=== PATIENT | female | born 1955 | race Caucasian/White ===

== ENCOUNTER → 2020-05-20 | Outpatient (CLI) | payer BC ==
[2016-09-16 12:01] VITALS: BP 91/61
[~2020-05-20] MED LIST: ACET500T33 PO; AMLO-311 PO; BREO ELLIPTA 11 EACH IH; FERR325T14 PO; LOSA100T14 PO; MECO10002 SL; MULT-658 PO; OMEP20CA16 PO; ONDA4TAB10 SL; ONDA4TAB7 PO; OXYC5CAP PO; RANI15SY PO; SUCR1TAB PO; VENTOLIN HFA18 GM INH
--- NOTE | 2020-05-20 14:28 | KCIC ---
Examination: HIP RIGHT 2V WITH PELVIS History: Reason: ACUTE PAIN OF RT HIP, NO KNOWN INJURY / Spl. Instructions: / History: Comparison/Correlation: None Findings: Frontal view the pelvis was obtained. Frontal view of right hip and frog-leg lateral view of the right hip are provided. Osteopenia is notable. Hip joint spaces are symmetric and unremarkable. Subtle subchondral lucencies of the right femoral head at its lateral aspect is seen. Suture material is noted along the right lower quadrant and upper pelvic level. Degenerative narrowing of the symphysis pubis is evident with subchondral sclerosis.. Impression: Subchondral degenerative cystic involvement of the right humeral head is noted with normal joint space. Osteopenia. Consider further imaging if occult fracture or other suspicious occult process is of concern. Electronically signed by: Cory Morales MD (05/20/2020 2:25 PM) [id number]
== END | disposition home or self-care (01) ==
LOC: KCIC 14:01
PROVIDERS: ATTEND Internal Medicine
DX: M16.11 Unilateral primary osteoarthritis, right hip (principal); M85.88 Other specified disorders of bone density and structure, other site
CPT/HCPCS: 73502

== ENCOUNTER → 2020-07-08 | Outpatient (CLI) | payer BC ==
[2016-09-16 12:01] VITALS: BP 91/61
[~2020-07-08] MED LIST changes: +AMLO10TA8 PO; +DICY20TA3 PO; +OXYC1TAB22 PO; +POLY17PO29 PO; +WARF-31 PO; +WARF1TAB69 PO
[2020-07-08 11:02] LABS: BASO % 0 % (0-3); EOS % 0 % (0-3); HEMATOCRIT 36.8 % (36.0-47.0); HEMOGLOBIN 12.3 g/dL (12.0-15.5); LYMPH # 0.9 x10^3/uL (1.0-4.8); LYMPH % 28 % (24-48); MEAN CORPUSCULAR HEMOGLOBIN 29 pg (25-35); MEAN CORPUSCULAR HGB CONC 33 g/dL (31-37); MEAN CORPUSCULAR VOLUME 87 fL (79-100); MONO # 0.4 x10^3/uL (0.0-1.1); MONO % 11 % (0-9); NEUT % 61 % (31-73); PLATELET COUNT 130 x10^3/uL (140-400); RED BLOOD COUNT 4.22 x10^6/uL (3.50-5.40); RED CELL DISTRIBUTION WIDTH 17.2 % (11.5-14.5); WHITE BLOOD COUNT 3.3 x10^3/uL (4.0-11.0)
[2020-07-08 11:05] LABS: ALBUMIN 3.5 g/dL (3.4-5.0); C-REACTIVE PROTEIN 4.4 mg/L (0-3.3); CALCIUM 8.3 mg/dL (8.5-10.1); CREATININE 0.9 mg/dL (0.6-1.0)
[2020-07-08 11:11] LABS: PROTHROMBIN TIME PATIENT 15.3 SEC (11.7-14.0)
--- NOTE | 2020-07-08 11:11 | EKG ---
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
--- NOTE | 2020-07-08 15:37 | RAD ---
EXAM: CHEST 2 VIEWS. HISTORY: Preoperative risk factors. COMPARISON: 04/07/2006. FINDINGS: Frontal and lateral views of the chest are obtained. A calcified granuloma in the left upper lobe measures 1.3 cm and is stable chronically. There are no confluent infiltrates. There is no pneumothorax or pleural effusion. The heart is not enlarged. Cholecystectomy clips are noted. There is a mild thoracic levoscoliosis. There are mild to moderate mid thoracic compression deformities and moderate thoracic degenerative disc disease. IMPRESSION: 1. No confluent infiltrates. Electronically signed by: Samira Salamanca MD (07/08/2020 3:34 PM) [id number]
[2020-07-09 01:09] LABS: HEMOGLOBIN A1C 5.1 % (4.8-5.6)
== END ==
LOC: SURGPAT 09:49
PROVIDERS: ATTEND Orthopaedic Surgery
DX: Z01.818 Encounter for other preprocedural examination (principal); M87.059 Idiopathic aseptic necrosis of unspecified femur; M51.34 Other intervertebral disc degeneration, thoracic region; J84.10 Pulmonary fibrosis, unspecified
CPT/HCPCS: 36415; 71046; 80048; 82040; 82306; 83036; 85025; 85610; 85730; 86140; 87641; 93005

== ENCOUNTER → 2020-07-25 | Outpatient (CLI) | payer BC ==
[2016-09-16 12:01] VITALS: BP 91/61
== END | disposition home or self-care (01) ==
LOC: LAB 12:49
PROVIDERS: ATTEND Orthopaedic Surgery
DX: Z20.828 Contact with and (suspected) exposure to other viral communicable diseases (principal)
CPT/HCPCS: U0003-CS

== ENCOUNTER 2020-07-30 06:08 | Inpatient (IN) | payer BC ==
[2020-07-30] VITALS (22 sets, daily range): BP systolic 74–96; BP diastolic 48–65
[~2020-07-30] VITALS: Ht 170.2 cm; Wt 76.3 kg
[~2020-07-30 06:08] MED LIST changes: +ACETAMINOPHEN 500 MG TABLET PO PRN; +CLINDAMYCIN 900MG PREMIX 50 ML IV PRN; +GABAPENTIN 300 MG CAPSULE. PO PRN; -OXYC1TAB22 PO; -POLY17PO29 PO; +TRANEXAMIC ACID 1,000 MG in IV NS 50ML -- 1ST BAG INJ ONE; -WARF-31 PO; -WARF1TAB69 PO
[2020-07-30] MEDS ORDERED: MORPHINE SULFATE 2 MG/ML VIAL. IV PRN (07:00)
[2020-07-30] MEDS ORDERED: ONDANSETRON PF 4 MG/2 ML VIAL. IV PRN (07:00)
[2020-07-30] MEDS ORDERED: fentaNYL PF VIAL 100 MCG/2 ML VIAL IV PRN (07:00)
[2020-07-30] MEDS ORDERED: LIDOCAINE 1% PF 2 ML VIAL. ID PRN (07:00)
[2020-07-30] MEDS ORDERED: HYDROmorphone 2 MG/ML VIAL IV PRN (07:00)
[2020-07-30] MEDS ORDERED: ROCURONIUM 50 MG/5 ML VIAL. ONE ×2 (07:37→11:08)
[2020-07-30] MEDS ORDERED: SEVOFLURANE > 120 MINUTES. IH ONE (07:37)
[2020-07-30] MEDS ORDERED: fentaNYL PF VIAL 100 MCG/2 ML VIAL ONE ×3 (07:37→12:58)
[2020-07-30] MEDS ORDERED: GLYCOPYRROLATE 1 MG/5 ML VIAL. ONE (07:38)
[2020-07-30] MEDS ORDERED: MIDAZOLAM HCL/PF 2 MG/2 ML VIAL. ONE (07:38)
[2020-07-30] MEDS ORDERED: NEOSTIGMINE METHYLSULFATE 5 MG/5 ML SYRINGE. ONE (07:38)
[2020-07-30] MEDS ORDERED: PROPOFOL 10 MG/ML (20ML) VIAL. IV ONE (07:39)
[2020-07-30] MEDS ORDERED: MELOXICAM 7.5 MG TABLET PO ONE ×2 (07:39→09:00)
[2020-07-30] MEDS ORDERED: DEXAMETHASONE SOD PHOS 4 MG/ML VIAL ONE (07:39)
[2020-07-30] MEDS ORDERED: ONDANSETRON PF 4 MG/2 ML VIAL. ONE (07:39)
[2020-07-30] MEDS ORDERED: LIDOCAINE 2% PF 5 ML VIAL. ONE (07:39)
[2020-07-30] MEDS: IV RINGERS,LACTATED 1000ML 1,000 ML IV SCH ×2 (07:54→12:32)
--- NOTE | 2020-07-30 07:55 | HP ---
ADMIT DATE: 07/30/2020 CHIEF COMPLAINT: Right hip pain. HISTORY OF PRESENT ILLNESS: The patient has ongoing right hip pain that is much more severe after a recent exacerbation episode. She has had avascular necrosis and has severe pain with weightbearing and range of motion waking her up if she rolls over at night as of an early May exacerbation episode could not put any weight on it at all. PAST MEDICAL HISTORY: Significant for Crohn's disease that required high doses of prednisone in the past, but nothing recent. Medical history of Crohn's disease, hypertension, asthma, anemia, iron deficiency. PAST SURGICAL HISTORY: Two bowel resections for Crohn's disease, partial hysterectomy, hernia repair, hemorrhoidectomy, laparoscopic cholecystectomy, liver biopsy, Achilles tendon repair, tonsillectomy, appendectomy, gallbladder surgery. FAMILY HISTORY: Dementia in her mom and COPD in her dad, both . SOCIAL HISTORY: Denies smoking or drug use. Occasional alcohol consumption socially. MEDICATIONS: List is reviewed. ALLERGIES: INCLUDE KEFLEX, TORADOL, CONTRAST DYE AND BACTRIM. REVIEW OF SYSTEMS: Denies any chest pain, shortness of breath, recent febrile illness, continued ongoing right hip pain. Denies any focal weakness, numbness, tingling. PHYSICAL EXAMINATION: VITAL SIGNS: Per admission sheet. HEENT: Atraumatic, normocephalic. HEART: Regular rate and rhythm. LUNGS: Clear to auscultation bilaterally. ABDOMEN: Benign. EXTREMITIES: Examination of the right hip reveals significant pain on her already limited extremes of range of motion. She has normal examination of the left hip. No tenderness over the trochanteric bursa on either side. Negative straight leg raise bilaterally. Normal alignment, stability, bilateral knees and ankles. IMPRESSION: Avascular necrosis of right hip and right hip pain. TREATMENT PLAN: We had previously talked through risks, benefits, postoperative course of total hip arthroplasty. She wants the anterior approach. We talked about the possibility of a leg length inequality, continued pain, premature wear or loosening, instability, nerve or blood vessel damage, medical or other anesthetic complications among others. All her questions were answered. She wishes to proceed with surgery today for again a right hip arthroplasty anterior approach. COCO GRIFFIN MD DR: BRYANT/cheryl JOB#: [id number] / [id number]
[2020-07-30] MEDS ORDERED: TRANEXAMIC ACID 1,000 MG in IV NS 50ML -- 2ND BAG INJ ONE (08:00)
[2020-07-30 08:05] LABS: PROTHROMBIN TIME PATIENT 15.3 SEC (11.7-14.0)
[2020-07-30] MEDS ORDERED: WARF-31 PO (08:12)
[2020-07-30] MEDS ORDERED: PHENYLEPHRINE in 0.9% NACL PF 1 MG/10 ML SYRINGE. IV ONE ×5 (08:20→12:02)
[2020-07-30] MEDS ORDERED: ePHEDrine PF IN SALINE 50 MG/10 ML SYRINGE. IV ONE ×3 (08:27→10:47)
[2020-07-30] MEDS ORDERED: MELOXICAM 7.5 MG TABLET PO SCH (09:00)
[2020-07-30] MEDS ORDERED: ALBUMIN HUMAN 5% 500 ML IV ONE (10:34)
[2020-07-30] MEDS ORDERED: VANCOMYCIN 1 GM VIAL. ONE (11:34)
[2020-07-30] MEDS ORDERED: PHENYLEPHRINE 10 MG/ML VIAL. ONE (12:03)
[2020-07-30] MEDS ORDERED: DEXTROSE 50% 25 GM / 50ML DISP.SYRIN. IV PRN (12:30)
[2020-07-30] MEDS ORDERED: oxyCODONE IR 5 MG TABLET PO PRN (12:30)
[2020-07-30] MEDS ORDERED: diphenhydrAMINE 50 MG/ML VIAL IVP PRN (12:30)
[2020-07-30] MEDS ORDERED: 0.9 % SODIUM CHLORIDE 10 ML DISP.SYRIN. IV PRN (12:30)
[2020-07-30] MEDS ORDERED: fentaNYL PF VIAL 100 MCG/2 ML VIAL IVP PRN (12:30)
[2020-07-30] MEDS ORDERED: ZOLPIDEM 5 MG TABLET. PO PRN (12:30)
--- NOTE | 2020-07-30 12:55 | RAD ---
INDICATION: Reason: post op / Spl. Instructions: / History: COMPARISON: June 10, 2020 IMPRESSION: Pelvis: 2 views obtained. Right hip arthroplasty changes without periprosthetic fracture or dislocation. There is a drain within the adjacent soft tissues as well as edema and air. Electronically signed by: Law Otoole MD (07/30/2020 12:52 PM) [id number]
[2020-07-30] MEDS ORDERED: PROCHLORPERAZINE 10 MG/2 ML VIAL. ONE (12:59)
[2020-07-30] MEDS: PROCHLORPERAZINE 10 MG/2 ML VIAL. IV PRN ×2 (13:03→13:26)
[2020-07-30] MEDS: fentaNYL PF VIAL 100 MCG/2 ML VIAL IV PRN ×2 (13:04→13:27)
--- NOTE | 2020-07-30 13:30 | NUR ---
received from recovery. she will arouse to her name. at bedside. she is hypotensive see frequent vs. bolus 500 cc ns started. she is pale and is rating her pain a "6". Hemovac jayy and iac intact.
--- NOTE | 2020-07-30 14:00 | NUR ---
she continues to hypotensive. Normal saline continue to infuse wide open. dozes at intervals.
[2020-07-30] MEDS ORDERED: IV NORMAL SALINE 500ML BAG 500 ML IV ONE (14:30)
[2020-07-30 14:58] LABS: HEMATOCRIT 22.5 % (36.0-47.0); HEMOGLOBIN 7.3 g/dL (12.0-15.5); RED BLOOD COUNT 2.53 x10^6/uL (3.50-5.40); RED CELL DISTRIBUTION WIDTH 16.1 % (11.5-14.5); WHITE BLOOD COUNT 5.8 x10^3/uL (4.0-11.0)
--- NOTE | 2020-07-30 15:00 | NUR ---
continues to be hypotensive. ivf of ns continues to infuse wide open. she arouses easily to her name.
[2020-07-30] MEDS ORDERED: WARFARIN 5 MG TABLET. PO ONE (16:00)
--- NOTE | 2020-07-30 16:14 | PDOC4 ---
Operative Note Operative Note Date of surgery: 07/30/2020 Preoperative diagnosis: Avascular necrosis right hip Postoperative diagnosis: Same with some isolated collapse of the femoral head Operative procedure: Right total hip arthroplasty Surgeon: Marcie Marshmallow Machine Operator: Charles Yadav nurse practitioner Anesthesia: General Estimated blood loss: 1100 cc Complications: None Specimens: Femoral head to pathology Drains: Intra-articular catheter and Hemovac drain right hip Operative indications: Please see my dictated clinic note for detailed operative indications and note that we covered the possibilities of infection, premature wear or loosening, instability, leg length discrepancy, nerve or blood vessel damage medical or other anesthetic complications among others and she wishes to proceed with surgical evaluation and treatment Operative text: Patient was identified procedure verified and after adequate amounts of general anesthesia were administered she was placed in the supine position on the [place] fracture table. Both legs were placed in traction boots and all bony prominences were well-padded. The right hip was then prepped and draped in standard sterile fashion. After timeout was performed patient procedure identified and verified an incision was made with a standard anterior approach along the tensor fascia artur. Dissection carried out down to the muscle fascia tensor fascia artur was brought laterally fascial compartment brought medially and circumflex vessels were coagulated with electrocautery. The anterior hip capsule was exposed and split in a T fashion. Femoral neck cut was then made in a napkin ring fashion and the femoral head was removed and found to have collapse of the portion of the weightbearing part of the head due to avascular necrosis. Labrum and contents of the fovea were excised and reaming carried out up to a size 51 which resulted in a good bleeding bony acetabulum and a size 52 porous plasma G7 Biomet acetabular shell 3-hole with 1 of the threaded caps removed. Proper anteversion and inclination was noted under fluoroscopic guidance and a single 25 mm screw was placed superiorly with excellent bite. A vitamin E E 36 mm neutral liner was impacted into place the femur was then exposed by releasing the posterior and lateral capsule with external rotators remaining intact and undergoing maximum external rotation hip extension and adduction to have a near complete broach system was used up to a size 7 and had excellent rotational and axial stability and was trial fit with a +7 36 mm trial head with a standard offset neck reproducing the offset and leg length as well as maintaining full range of motion excellent stability. Trial stem and components were removed irrigation carried out normal saline solution and and have a near complete collared size 7 standard offset cementless femoral stem was impacted into place with excellent stability and a Biolox ceramic femoral head +7, 36 mm diameter was impacted to engage the Salas taper and reduced and found to have similar offsets leg length and stability. Thorough irrigation carried out normal saline solution hip capsule was repaired with #2 max braid suture. Hemovac drain and pain catheter were placed pain catheter mixture injected throughout subperiosteal area and the joint capsule. Fascia was closed with #1 PDS strata fix suture subcutaneous closure with buried Vicryl suture skin closure with #3-0 Monocryl strata fix followed by a jayy dressing. Patient was returned to recovery room in stable condition having tolerated procedure well. Charles Yadav nurse practitioner was present for the procedure and assisted in the patient positioning prepping draping retraction closure and dressings COCO GRIFFIN MD Jul 30, 2020 16:14
--- NOTE | 2020-07-30 16:15 | NUR ---
Dr. Jack notified of continued hypotension. received order to infuse 2 units of packed cells. hemoglobin 7.3 dressing to right hip remains clean dry. blood pressure is in the 80's/ 50's.continues to arouse easily. voided 200 cc concentrated urine
[2020-07-30] MEDS: IV NORMAL SALINE 1000ML BAG 1,000 ML IV SCH (16:26)
--- NOTE | 2020-07-30 16:30 | NUR ---
more alert and blood pressure is more consistent. she was eating cake and tolerated fair. medicated with fentanyl 25 mcg and tolerated well.
[2020-07-30] MEDS: CLINDAMYCIN 900MG PREMIX 50 ML IV SCH ×2 (16:31→22:01)
[2020-07-30] MEDS: FERROUS SULFATE 325 MG TABLET. PO SCH (17:00)
--- NOTE | 2020-07-30 18:59 | NUR ---
rests quietly with eyes closed 1st unit of packed cells began
--- NOTE | 2020-07-30 21:15 | NUR ---
Transfusion completed. No s/s of reaction noted. Vitals stable. Patient denies any c/o pain at IV site, Saline flushed without difficulty, with good blood return. No redness noted. Patient voiding without difficulty. Call light in reach, will monitor.
[2020-07-31] VITALS (12 sets, daily range): BP systolic 86–109; BP diastolic 47–64
[2020-07-31] MEDS: MORPHINE SULFATE 2 MG/ML VIAL. IVP PRN ×8 (00:03→23:52)
--- NOTE | 2020-07-31 00:14 | NUR ---
Packed RBCs started post priming blood tubing with normal saline, then blood. Vital sign monitoring initiated and Patient denies any c/o. IV site flushed with blood return without difficulty.
--- NOTE | 2020-07-31 00:43 | NUR ---
Packed RBCS restarted post new IV site obtained as Patient c/o discomfort to IV site and slight redness noted at site after blood started. Blood running without c/o pain/discomfort at this time. Will monitor. Remaining at bedside for first 15 minutes to monitor infusion.
--- NOTE | 2020-07-31 02:36 | NUR ---
BLOOD PAUSED FOR 2 MINUTES AND FLUSHED PRIOR TO AND POST GIVING MORPHINE FOR PATIENT C/O PAIN.
--- NOTE | 2020-07-31 03:15 | NUR ---
Transfusion completed. Vitals stable. No s/s of reaction noted. IV site intact, no redness,pain noted. Patient denies SOA, voiding without difficulty.
[2020-07-31] MEDS: CLINDAMYCIN 900MG PREMIX 50 ML IV SCH (03:54)
[2020-07-31 05:03] LABS: PROTHROMBIN TIME PATIENT 24.7 SEC (11.7-14.0)
[2020-07-31] MEDS: oxyCODONE IR 5 MG TABLET PO PRN ×3 (05:25→21:53)
[2020-07-31] MEDS: GABAPENTIN 100 MG CAPSULE. PO SCH ×3 (05:27→21:59)
[2020-07-31] MEDS ORDERED: MAGNESIUM HYDROXIDE 2,400 MG/30 ML ORAL.SUSP. PO PRN (06:00)
[2020-07-31 06:53] LABS: HEMATOCRIT 24.8 % (36.0-47.0); HEMOGLOBIN 8.6 g/dL (12.0-15.5)
[2020-07-31] MEDS: MELOXICAM 7.5 MG TABLET PO SCH (07:58)
[2020-07-31] MEDS: MULTIVITAMIN with MINERAL TABLET. PO SCH (07:58)
[2020-07-31] MEDS ORDERED: ONDANSETRON ODT 4 MG TAB.RAPDIS. PO SCH (08:00)
--- NOTE | 2020-07-31 08:00 | NUR ---
awake and complaining of pain. states it is 10/10. assisted out of bed and ambulated to bathroom; voided 300 yellow urine. sitting in recliner. dressing to right anterior hip is clean dry. medicated with morphine. denies nausea; home medications renewed except for Norvasc. she has good pulses, sensation and pedal pulses bilaterally.
[2020-07-31] MEDS ORDERED: POLY17PO29 PO (08:03)
[2020-07-31] MEDS: ACETAMINOPHEN 500 MG TABLET PO SCH ×3 (08:43→21:53)
[2020-07-31] MEDS: FERROUS SULFATE 325 MG TABLET. PO SCH ×2 (08:44→14:14)
[2020-07-31] MEDS: PANTOPRAZOLE 40 MG TABLET.DR. PO SCH (08:44)
[2020-07-31] MEDS: POLYETHYLENE GLYCOL 3350 17 GM PACKET. PO SCH (08:44)
[2020-07-31] MEDS: ALBUTEROL SULFATE 2.5 MG/3 ML NEBU. NEB SCH ×4 (08:45→23:54)
[2020-07-31] MEDS ORDERED: NON FORMULARY ITEM (Fluticasone/Vilanterol (Breo Ellipta 100-25 Mcg Inh) 1 PUFF) IH SCH (09:00)
--- NOTE | 2020-07-31 10:00 | NUR ---
continues to complain of pain 8-08/01; again medicated with morphine. attending rehab class.
[2020-07-31] MEDS: DICYCLOMINE HCL 10 MG CAPSULE PO SCH ×3 (10:16→21:53)
[2020-07-31] MEDS: ONDANSETRON ODT 4 MG TAB.RAPDIS. PO SCH ×3 (10:16→18:17)
--- NOTE | 2020-07-31 11:04 | NUR ---
Pharmacy Warfarin Dosing Note S:Pharmacy consulted to assist with anticoagulation therapy started 07/30/20 with target INR: 1.6 - 2.5 O:TUNG BERMAN is a 64 year old F with right MARIELOS LABS: Last INR: 2.2 Last HGB: 8.6 Last HCT: 24.8 Last PLT: 92 Last dose of 5 mg given on 07/30/20 at 1653 A:INR of 2.2 is within desired range. Target range for this patient is: 1.6 - 2.5 P: Warfarin dose: Hold Today due to 0.9 increase in INR Bridge Therapy: None Next INR due 08/01/20 Pharmacy anticoagulation service will continue to follow. RUBIA FELIPE [facility]OPER [facility], 07/31/20 [id number]
[2020-07-31] MEDS ORDERED: ONDANSETRON ODT 4 MG TAB.RAPDIS. PO PRN (12:00)
[2020-07-31] MEDS: IV NORMAL SALINE 1000ML BAG 1,000 ML IV SCH (12:20)
--- NOTE | 2020-07-31 13:30 | NUR ---
states that her hip is feeling better but her right knee is worse. at bedside. attending 2nd rehab class. blood pressure remains hypotensive.
--- NOTE | 2020-07-31 15:00 | NUR ---
original surgical dressing removed. Hemovac was accidentally removed during pulling up pants. IAC removed and tolerated well. continues to complain of increase pain in her right knee. returns to bed attended both rehab sessions today ; tolerated fair.
--- NOTE | 2020-07-31 19:24 | PDOC ---
PROGRESS NOTES Date of Service DATE: 07/31/20 TIME: 19:19 Subjective Subjective Problems overnight: [place] a bit better this morning after transfusion. Got through physical therapy sessions but at the end of her afternoon session noted to have some limiting anterior knee pain Objective Vital Signs Vital Signs Date Time Temp Pulse Resp B/P (MAP) Pulse Ox O2 Delivery O2 Flow Rate FiO2 07/31/20 18:17 20 94 07/31/20 18:15 98.6 83 109/61 (77) Room Air 98.6 07/31/20 06:46 2.0 Physical Exam Leg lengths equal distal neurovascular status intact, jayy dressing intact hip with good motion and stability knee Tracking well but has some superior pole patella pain with intact extensor mechanism Labs Laboratory Tests Test 07/30/20 06:45 07/30/20 14:40 07/31/20 04:40 Prothrombin Time 15.3 SEC (11.7-14.0) 24.7 SEC (11.7-14.0) Prothromb Time International Ratio 1.3 (0.8-1.1) 2.2 (0.8-1.1) Activated Partial Thromboplast Time 36 SEC (24-38) White Blood Count 5.8 x10^3/uL (4.0-11.0) Red Blood Count 2.53 x10^6/uL (3.50-5.40) Hemoglobin 7.3 g/dL (12.0-15.5) 8.6 g/dL (12.0-15.5) Hematocrit 22.5 % (36.0-47.0) 24.8 % (36.0-47.0) Mean Corpuscular Volume 89 fL (79-100) Mean Corpuscular Hemoglobin 29 pg (25-35) Mean Corpuscular Hemoglobin Concent 33 g/dL (31-37) 35 g/dL (31-37) Red Cell Distribution Width 16.1 % (11.5-14.5) Platelet Count 92 x10^3/uL (140-400) Laboratory Tests Test 07/31/20 04:40 Hemoglobin 8.6 g/dL (12.0-15.5) Hematocrit 24.8 % (36.0-47.0) Mean Corpuscular Hemoglobin Concent 35 g/dL (31-37) Prothrombin Time 24.7 SEC (11.7-14.0) Prothromb Time International Ratio 2.2 (0.8-1.1) Imaging Postop x-rays show excellent fit of implant and equal leg lengths and offset Assessment Assessment POD#1 right total hip arthroplasty Plan Plan of Care Hemoglobin 8.6 after transfusion yesterday, recheck in a.m.; has history of anemia preop due to ulcerative colitis Observe right knee pain at end of physical therapy session today Justicifation of Admission Dx: Justifications for Admission: Justification of Admission Dx: Yes Comments: Required transfusion postop and monitoring, also some acute atraumatic right knee pain impacting her mobilization at the end of physical therapy session today COCO GRIFFIN MD Jul 31, 2020 19:24
[2020-07-31] MEDS: BUDESONIDE 0.5 MG/2 ML NEBU. NEB SCH (20:05)
[2020-08-01] MEDS: ACETAMINOPHEN 500 MG TABLET PO SCH ×4 (03:00→23:43)
--- NOTE | 2020-08-01 04:20 | NUR ---
IV tape reinforced, c/o some burning w/ saline flush. Offered to DC IV and convert to po pain meds; pt states " The dr and therapist said today will be the most painful day, it's the 3rd day." Patient did sleep about 4 hours in the recliner. States she woke up and didn't know where she was.
[2020-08-01] MEDS: MORPHINE SULFATE 2 MG/ML VIAL. IVP PRN ×5 (04:25→23:46)
[2020-08-01 06:00] VITALS: BP 117/73
[2020-08-01] MEDS: ALBUTEROL SULFATE 2.5 MG/3 ML NEBU. NEB SCH ×3 (06:00→19:44)
[2020-08-01 06:07] LABS: HEMATOCRIT 26.4 % (36.0-47.0); HEMOGLOBIN 9.3 g/dL (12.0-15.5)
[2020-08-01 06:14] LABS: PROTHROMBIN TIME PATIENT 24.8 SEC (11.7-14.0)
[2020-08-01] MEDS: PANTOPRAZOLE 40 MG TABLET.DR. PO SCH (06:25)
[2020-08-01] MEDS: GABAPENTIN 100 MG CAPSULE. PO SCH ×3 (06:25→23:43)
[2020-08-01] MEDS: ONDANSETRON ODT 4 MG TAB.RAPDIS. PO SCH ×4 (06:25→18:08)
--- NOTE | 2020-08-01 06:25 | NUR ---
Temp 101.3, Dr. Jack here and made aware. IS encouraged, demonstrates 1500cc. Hgb 9.3.
[2020-08-01] MEDS: oxyCODONE IR 5 MG TABLET PO PRN ×3 (06:26→14:26)
--- NOTE | 2020-08-01 06:39 | PDOC ---
PROGRESS NOTES Date of Service DATE: 08/01/20 TIME: 06:35 Subjective Subjective Problems overnight: Having increased proximal thigh pain overnight, requesting IV morphine as it works much better than current oral medications. Knee pain somewhat relieved from yesterday afternoon. Currently febrile to 101. Reports using incentive spirometry yesterday but really not overnight Objective Vital Signs Vital Signs Date Time Temp Pulse Resp B/P (MAP) Pulse Ox O2 Delivery O2 Flow Rate FiO2 08/01/20 06:26 20 Room Air 07/31/20 20:11 99 07/31/20 18:15 98.6 83 109/61 (77) 98.6 07/31/20 06:46 2.0 Physical Exam Thigh is soft but tender over incision compartments soft leg lengths equal distal neurovascular status intact hip flexors weak as expected Labs Laboratory Tests Test 07/30/20 06:45 07/30/20 14:40 07/31/20 04:40 08/01/20 04:28 Prothrombin Time 15.3 SEC (11.7-14.0) 24.7 SEC (11.7-14.0) 24.8 SEC (11.7-14.0) Prothromb Time International Ratio 1.3 (0.8-1.1) 2.2 (0.8-1.1) 2.3 (0.8-1.1) Activated Partial Thromboplast Time 36 SEC (24-38) White Blood Count 5.8 x10^3/uL (4.0-11.0) Red Blood Count 2.53 x10^6/uL (3.50-5.40) Hemoglobin 7.3 g/dL (12.0-15.5) 8.6 g/dL (12.0-15.5) 9.3 g/dL (12.0-15.5) Hematocrit 22.5 % (36.0-47.0) 24.8 % (36.0-47.0) 26.4 % (36.0-47.0) Mean Corpuscular Volume 89 fL (79-100) Mean Corpuscular Hemoglobin 29 pg (25-35) Mean Corpuscular Hemoglobin Concent 33 g/dL (31-37) 35 g/dL (31-37) 35 g/dL (31-37) Red Cell Distribution Width 16.1 % (11.5-14.5) Platelet Count 92 x10^3/uL (140-400) Laboratory Tests Test 08/01/20 04:28 Hemoglobin 9.3 g/dL (12.0-15.5) Hematocrit 26.4 % (36.0-47.0) Mean Corpuscular Hemoglobin Concent 35 g/dL (31-37) Prothrombin Time 24.8 SEC (11.7-14.0) Prothromb Time International Ratio 2.3 (0.8-1.1) Assessment Assessment POD#2 right total hip arthroplasty Plan Plan of Care Hemoglobin now 9.3 versus 8.6 yesterday, asymptomatic, fever currently encouraged incentive spirometry More thigh pain today, IV pain medicine for now and expect transition to oral as it is effective Continue PT weightbearing as tolerated avoiding extreme hips range of motion Placement when stable, likely tomorrow Justicifation of Admission Dx: Justifications for Admission: Justification of Admission Dx: Yes (Requiring IV pain medications, fever encourage incentive spirometry) COCO GRIFFIN MD Aug 01, 2020 06:39
[2020-08-01] MEDS: BUDESONIDE 0.5 MG/2 ML NEBU. NEB SCH ×2 (07:18→19:44)
[2020-08-01] MEDS: POLYETHYLENE GLYCOL 3350 17 GM PACKET. PO SCH (08:27)
[2020-08-01] MEDS: DICYCLOMINE HCL 10 MG CAPSULE PO SCH ×3 (08:28→23:44)
[2020-08-01] MEDS: MULTIVITAMIN with MINERAL TABLET. PO SCH (08:28)
[2020-08-01] MEDS: FERROUS SULFATE 325 MG TABLET. PO SCH ×2 (08:29→14:26)
[2020-08-01] MEDS: MELOXICAM 7.5 MG TABLET PO SCH (08:29)
[2020-08-01 08:35] VITALS: BP 110/71
--- NOTE | 2020-08-01 08:45 | NUR ---
102.2 -hr 100-20 110/71 sepsis team paged. instructed on Incentive spirometer and deep breathing. tylenol given. she was also getting a breathing treatment.
[2020-08-01 11:17] VITALS: BP 94/58
[2020-08-01] MEDS: IV NORMAL SALINE 1000ML BAG 1,000 ML IV SCH (12:20)
[2020-08-01 14:24] VITALS: BP 98/54
--- NOTE | 2020-08-01 15:27 | NUR ---
Pharmacy Warfarin Dosing Note S: Pharmacy consulted to assist with anticoagulation therapy started 07/30/20 O: TUNG BERMAN is a 64 year old F with MARIELOS LABS: Last INR: 2.3 Last HGB: 9.3 Last HCT: 26.4 Last PLT: 92 Last dose of HELD on 07/31/20 at 1600 Vitamin K given: N A:INR of 2.3 is within desired range. Target range for this patient is: 1.6 - 2.5 P: Warfarin dose: 1 mg Today at 1600 Bridge Therapy: None Next INR due 08/02/20 AM Pharmacy anticoagulation service will continue to follow. HERIBERTO BALDERRAMA RP, 08/01/20 [id number]
[2020-08-01] MEDS ORDERED: WARFARIN 1 MG TABLET. PO ONE (16:00)
[2020-08-01] MEDS ORDERED: MAGNESIUM HYDROXIDE 2,400 MG/30 ML ORAL.SUSP. PO PRN (17:30)
[2020-08-01 18:15] VITALS: BP 91/59
[2020-08-01 23:30] VITALS: BP 103/68
[2020-08-02] MEDS: ACETAMINOPHEN 500 MG TABLET PO SCH ×3 (03:00→12:56)
[2020-08-02] MEDS: oxyCODONE IR 5 MG TABLET PO PRN ×5 (03:08→16:03)
--- NOTE | 2020-08-02 03:13 | NUR ---
Ambulated to toilet, rating pain 5\10. Roxicodone 10mg given po. Assisted back to bed.
[2020-08-02] MEDS: GABAPENTIN 100 MG CAPSULE. PO SCH ×2 (05:36→16:02)
[2020-08-02] MEDS: PANTOPRAZOLE 40 MG TABLET.DR. PO SCH (05:36)
[2020-08-02] MEDS: ONDANSETRON ODT 4 MG TAB.RAPDIS. PO SCH ×3 (05:36→12:00)
[2020-08-02 05:42] LABS: HEMATOCRIT 23.5 % (36.0-47.0)
[2020-08-02 05:46] LABS: PROTHROMBIN TIME PATIENT 20.5 SEC (11.7-14.0)
[2020-08-02 06:18] VITALS: BP 93/67
--- NOTE | 2020-08-02 06:36 | NUR ---
Hemoglobin 8.0. BP 93/67. Patient sleeping in bed.
[2020-08-02] MEDS ORDERED: BISACODYL 10 MG SUPP.RECT. PR ONE (07:15)
[2020-08-02] MEDS: DICYCLOMINE HCL 10 MG CAPSULE PO SCH ×2 (07:23→12:56)
[2020-08-02] MEDS: MELOXICAM 7.5 MG TABLET PO SCH (07:23)
[2020-08-02] MEDS: FERROUS SULFATE 325 MG TABLET. PO SCH (07:23)
[2020-08-02] MEDS: MULTIVITAMIN with MINERAL TABLET. PO SCH (07:24)
[2020-08-02] MEDS: ALBUTEROL SULFATE 2.5 MG/3 ML NEBU. NEB SCH ×3 (07:26→15:25)
[2020-08-02] MEDS: BUDESONIDE 0.5 MG/2 ML NEBU. NEB SCH (07:27)
[2020-08-02] MEDS: POLYETHYLENE GLYCOL 3350 17 GM PACKET. PO SCH (10:45)
--- NOTE | 2020-08-02 11:08 | PATHOLOGY ---
[facility] Accession Number: [id number] . 01 Material submitted: . hip - RIGHT HIP BONE AND TISSUE. Modifiers: right . 01 Clinical history: . AVN RIGHT HIP . 02 Diagnosis: Bone "right hip", total arthroplasty: - Collapse of bony trabeculae with coagulative necrosis, consistent with avascular necrosis. - Negative for malignancy. (MLK:pit; 08/02/2020) P 08/02/2020 1043 Local . 02 Electronically signed: . Luh Vásquez MD, Pathologist NPI- [id number] . 01 Gross description: . The specimen is received in formalin, labeled "Ivis Gomes, right hip bone and tissue". Received is a fragmented femoral head and femoral neck measuring 7.5 x 5.4 x 4.8 cm in aggregate dimension. The articular surface is smooth in appearance and approximately one-fourth of the surface is absent exposing underlying light campos to light brown, friable bone. Sectioning reveals pink-campos to dark brown cut surfaces with multiple cystic structures identified ranging in size from 0.4 to 0.7 cm filled with yellow-campos mucoid material. The specimen is submitted representatively in cassettes A1 through A3, following decalcification. Gross photographs are taken. (CAA; 07/31/2020) QA/QA 07/31/2020 1135 Local . 02 Pathologist provided ICD-10: M87.852 . 02 CPT . 972057, 821337 Specimen Comment: A courtesy copy of this report has been sent to [phone], [phone] Specimen Comment: [id number] Specimen Comment: Report sent to / DR WEST Performed at: [address], [place], [place] [id number] MD Trevon Venegas MD Phone: [phone] Performed at: [address] [id number] MD Keyshawn Gruber MD Phone: [phone]
--- NOTE | 2020-08-02 12:09 | NUR ---
Pharmacy Warfarin Dosing Note S: Pharmacy consulted to assist with anticoagulation therapy started 07/30/20 O: TUNG BERMAN is a 64 year old F with MARIELOS LABS: Last INR: 1.8 Last PLT: 92 Last dose of 1 mg given on 08/01/20 at 1809 Ongoing Drug Interactions: MOBIC A:INR of 1.8 is within desired range. Target range for this patient is: 1.6 - 2.5 P: Warfarin dose: 1 mg Prior to Discharge Bridge Therapy: None Next INR due 08/05/20 per Home Health Pharmacy anticoagulation service will continue to follow until end of therapy 09/09/20. HERIBERTO BALDERRAMA RPH, 08/02/20 [id number]
[2020-08-02] MEDS: IV NORMAL SALINE 1000ML BAG 1,000 ML IV SCH (12:20)
[2020-08-02] MEDS ORDERED: CYANOCOBALAMIN (VITAMIN B-12) 1,000 MCG TABLET. PO SCH (13:00)
[2020-08-02] MEDS ORDERED: WARF1TAB69 PO (13:24)
[2020-08-02 14:32] VITALS: BP 89/66
[2020-08-02] MEDS ORDERED: OXYC1TAB22 PO (15:53)
--- NOTE | 2020-08-02 15:55 | SNU/HH DC ---
DISCHARGE WITH HOME HEALTH DISCHARGE INFORMATION: Condition on Discharge: Stable CODE STATUS: Code Status: Full HOME HEALTH: Face to Face: I certify this patient is under my care and that I, or a nurse practitioner or physician's graduate assistant working with me, had a face to face encounter that meets the physician face to face encounter requirements with this patient on [08/02/20]. 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 manager For Eval/Treatment: Yes Physical Therapy For: Evalulation/Treatment Pt Meets Homebound Status: Limited distance walking POST DISCHARGE ORDERS: Activity Instructions for Disc: Progressive ambulation Weight Bearing Status after Di: As tolerated Bathing Instructions: Shower-keep dressing dry DIET AFTER DISCHARGE: Regular Wound/Incision Care: Ice to area for comfort, Do not change dressing (Change dressing if saturated) CHECKS AFTER DISCHARGE: Checks after discharge: Check blood press - daily (Hold blood pressure medication if hypotensive or normotensive) CERTIFICATION STATEMENT: Certification Statement: Certification Statement: Based on the above finding, I certify that this patient is confined to the home and needs intermittent senior living care, physical therapy and/or speech therapy, or continues to need occupational therapy.~ This patient is under my care, and I have initiated the establishment of the plan of care.~ This patient will be followed by myself or a community physician who will periodically review the plan of care. Home Meds Active Scripts Ondansetron Hcl (ZOFRAN) 4 Mg Tablet, 1 TAB PO Q6HRS, #13 TAB Prov:ALAINA HANSEN MD 09/16/16 Reported Medications Warfarin Sodium (WARFARIN SODIUM) 1 Mg Tablet, 1 MG PO DAILY for blood thinner , #45 TAB 0 Refills 08/02/20 Polyethylene Glycol 3350 (MIRALAX) 17 Gm Powd.pack, 1 PACKET PO DAILY for constipation, #30 PACKET 0 Refills dissolve in water 07/31/20 Warfarin Sodium (WARFARIN SODIUM) 5 Mg Tablet, 5 MG PO X1 for PREOP, #30 TAB 07/30/20 Dicyclomine Hcl (DICYCLOMINE HCL) 20 Mg Tablet, 1 TAB PO TID for NA, #30 TAB 1 Refill 07/08/20 Amlodipine Besylate (AMLODIPINE BESYLATE) 10 Mg Tablet, 10 MG PO DAILY for HTN, TAB 07/08/20 Omeprazole (OMEPRAZOLE) 20 Mg Capsule.dr, 1 CAP PO DAILY, #30 CAP 5 Refills 10/20/16 Ondansetron (ZOFRAN ODT) 4 Mg Tab.rapdis, 1 TAB SL Q8HRS, #15 TAB 09/10/16 Ferrous Sulfate (FERROUS SULFATE) 325 Mg Tablet, 1 TAB PO DAILY, #30 TAB 3 Refills 09/10/16 Multivits-Min/Fa/Lycopene/Lut (CENTRUM SILVER TABLET) 1 Each Tablet, 1 EACH PO 09/10/16 Fluticasone/Vilanterol (BREO ELLIPTA 100-25 MCG INH) 1 Each Aer.pow.ba, 1 PUFF IH DAILY, INHALER 09/10/16 Mecobalamin (B-12) 1,000 Mcg Tab.rapdis, 1000 MCG SL 09/10/16 COCO GRIFFIN MD Aug 02, 2020 15:55
[2020-08-02] MEDS ORDERED: WARFARIN 1 MG TABLET. PO ONE (16:00)
--- NOTE | 2020-08-02 16:46 | NUR ---
Discharge instructions given to pt/spouse with follow up to Dr. Jack in 2 weeks, see instruction sheet for details, belongings taken with patient
--- NOTE | 2020-08-02 20:28 | DS ---
DATE OF DISCHARGE: 08/02/2020 ORTHOPEDIC DISCHARGE SUMMARY DISPOSITION: Home with home health. PREOPERATIVE DIAGNOSIS: Avascular necrosis of right hip. PROCEDURE: Right total hip arthroplasty, anterior approach. DISPOSITION MEDICATIONS: Include Percocet 10/325 one p.o. q.4 hours p.r.n. pain, dispensed #60; warfarin 1 mg daily or later as directed by the anticoagulation clinic. Held medications include amlodipine 10 mg p.o. daily as long as she is hypotensive or normotensive. Rest of her preoperative medications are continued. ACTIVITY LEVEL: weightbearing as tolerated. Avoid extremes of hip range of motion. Maintain Aquacel dressing and replace with daily dressing changes if it is saturated. Call for any uncontrolled pain, redness, drainage, fever, chills, or other problems. BRIEF DESCRIPTION OF HOSPITAL COURSE: The patient underwent uncomplicated anterior approach total hip arthroplasty that was notable only for a significant amount of blood loss with preoperative anemia due to her situation with a history of ulcerative colitis in the past. She, therefore, underwent transfusion for some postoperative hypotension despite fluid replacement and transfused a total of 2 units packed red blood cells postoperatively. Hemoglobin was 9.6 and had dropped in the 8 range on postoperative day #3, but she remained asymptomatic aside from just having one initial episode of some superior pole of the patella knee pain at the end of her physical therapy session and on postop day #2 and #3, some tenderness and tightness in the upper thigh area. Leg lengths are equal. Distal neurovascular status remained intact. Compartments are soft. She did run a low-grade fever on the evening prior to postop day #3 that had not recurred, but she had been diligently doing her incentive spirometry and was encouraged to do so on her discharge as well. We also emphasized that her blood pressure medication would be held if she is hypotensive or normotensive and only renewed if hypertension recurs later. She is also going to take iron on her own in addition to her multivitamin. Follow up with Dr. Jack 2 weeks postop and she was discharged home in stable condition with home health followup with nursing follow due to her wound checks, monitoring any blood pressure changes or keeping a close eye out for any fever. COCO JACK MD DR: BRYANT/cheryl JOB#: [id number] / [id number]
== END 2020-08-02 16:58 | disposition home health service (06) | DRG 470 ==
LOC: OPSVCIP 06:08 → 4 SOUTHEST 14:30
PROVIDERS: ADMIT Orthopaedic Surgery; ATTEND Orthopaedic Surgery
PROC: 30233N1 Transfusion of Nonautologous Red Blood Cells into Peripheral Vein, Percutaneous Approach (ICD-10-PCS; 2020-07-30)
PROC: 0SR90JZ Replacement of Right Hip Joint with Synthetic Substitute, Open Approach (ICD-10-PCS; principal; 2020-07-30 08:00)
DX: M87.851 Other osteonecrosis, right femur (principal); K50.90 Crohn's disease, unspecified, without complications; I10 Essential (primary) hypertension; I95.81 Postprocedural hypotension; J45.909 Unspecified asthma, uncomplicated; Z79.01 Long term (current) use of anticoagulants; Z79.899 Other long term (current) drug therapy; Z81.8 Family history of other mental and behavioral disorders; Z82.5 Family history of asthma and other chronic lower respiratory diseases; Z90.711 Acquired absence of uterus with remaining cervical stump; Z96.641 Presence of right artificial hip joint; Z90.710 Acquired absence of both cervix and uterus; Z88.8 Allergy status to other drugs, medicaments and biological substances; Z91.041 Radiographic dye allergy status
CPT/HCPCS: 36415; 72170; 76000; 85014; 85018; 85027; 85610; 85730; 86850; 86900; 86901; 86920; 94640; 94760; A7015; C1887; J0171; J0780; J1100; J2250; J2270; J2370; J2405; J2704; J2710; J2795; J3010; J3370; J3490; J7030; J7040; J7120; P9016; P9045; 97116-GP; 97150-GP; 97530-GO; 97530-GP; 97535-GO; G0378; J7613; J7626

== ENCOUNTER 2021-11-15 07:57 | Emergency (ER) | payer MEDICARE ==
[~2021-11-15] VITALS: Ht 170.2 cm; Wt 67.3 kg
[~2021-11-15 07:57] MED LIST changes: -ACETAMINOPHEN 500 MG TABLET PO PRN; +AMLO-187 PO; -AMLO10TA8 PO; -CLINDAMYCIN 900MG PREMIX 50 ML IV PRN; +DICY20TA PO; -DICY20TA3 PO; -GABAPENTIN 300 MG CAPSULE. PO PRN; +OXYC1TAB22 PO; +POLY17PO29 PO; -TRANEXAMIC ACID 1,000 MG in IV NS 50ML -- 1ST BAG INJ ONE; +WARF-31 PO; +WARF1TAB69 PO
[2021-11-15] MEDS ORDERED: diazePAM 5 MG TABLET PO ONE (08:15)
[2021-11-15 08:21] LABS: BASO % 0 % (0-3); EOS % 0 % (0-3); HEMATOCRIT 34.7 % (36.0-47.0); HEMOGLOBIN 11.2 g/dL (12.0-15.5); LYMPH # 1.1 x10^3/uL (1.0-4.8); LYMPH % 20 % (24-48); MEAN CORPUSCULAR HEMOGLOBIN 27 pg (25-35); MEAN CORPUSCULAR HGB CONC 32 g/dL (31-37); MEAN CORPUSCULAR VOLUME 83 fL (79-100); MONO # 0.5 x10^3/uL (0.0-1.1); MONO % 8 % (0-9); NEUT % 72 % (31-73); PLATELET COUNT 150 x10^3/uL (140-400); RED BLOOD COUNT 4.19 x10^6/uL (3.50-5.40); RED CELL DISTRIBUTION WIDTH 21.2 % (11.5-14.5); WHITE BLOOD COUNT 5.6 x10^3/uL (4.0-11.0)
[2021-11-15] MEDS ORDERED: ACETAMINOPHEN 500 MG TABLET PO ONE (09:15)
[2021-11-15 09:36] LABS: ANISOCYTOSIS SLIGHT; PLT ESTIMATE ADEQUATE (ADEQUATE); POLYCHROMASIA SLIGHT
[2021-11-15 09:39] LABS: CALCIUM 8.5 mg/dL (8.5-10.1); CREATININE 0.6 mg/dL (0.6-1.0); POTASSIUM 3.1 mmol/L (3.5-5.1)
[2021-11-15 09:45] LABS: ALBUMIN 3.2 g/dL (3.4-5.0); ALBUMIN/GLOBULIN RATIO 0.8 (1.0-1.7); TOTAL BILIRUBIN 0.6 mg/dL (0.2-1.0)
--- NOTE | 2021-11-15 10:01 | RAD ---
CT ABDOMEN+PELVIS WO dated 11/15/2021 8:49 AM Indication:Reason: Low back pain / Spl. Instructions: / History: Comparison: No comparison is available. Technique: Helical noncontrast images were performed. One or more of the following individualized dose reduction techniques were utilized for this examinat ion: 1. Automated exposure control 2. Adjustment of the mA and/or kV according to patient size 3. Use of iterative reconstruction technique Findings: There is minimal atelectasis at both lung bases. Liver and spleen show small calcifications consisten t with prior granulomatous infection. No significant focal abnormality is seen. Liver contour is mild ly irregular. The biliary tree appears mildly dilated without cause for obstruction. This could relat e to prior cholecystectomy. The spleen is enlarged, measuring about 18 cm craniocaudally. There may b e a trace of ascites adjacent to the liver anteriorly. The kidneys show no apparent mass, calcificati on or obstruction. The adrenal glands are not enlarged. No pancreatic abnormality is seen. There is n o apparent retroperitoneal or mesenteric adenopathy. No abdominal soft tissue mass or inflammatory pr ocess is seen. Images through the pelvis show no abnormality of the distal ureters or bladder. No pelvic or inguinal adenopathy is seen. There is no apparent pelvic mass or inflammatory process. There is prominent met al artifact arising from the right hip, slightly limiting evaluation. IMPRESSION: No acute abnormality is identified. There are findings that may indicate cirrhosis and portal hyperte nsion. Electronically signed by: Henry Braun Jr., MD (11/15/2021 9:59 AM) [facility]
[2021-11-15 10:38] LABS: BILIRUBIN,URINE NEGATIVE (NEG); CLARITY,URINE CLEAR; COLOR,URINE YELLOW; NITRITE,URINE NEGATIVE (NEG); PROTEIN,URINE NEGATIVE (NEG-TRACE)
[2021-11-15 10:49] LABS: AMORPHOUS SEDIMENT,UR PRESENT /HPF
[2021-11-15 10:50] LABS: BACTERIA,URINE FEW /HPF (0-FEW); RBC,URINE 0 /HPF (0-2); WBC,URINE OCC /HPF (0-4)
[2021-11-15] MEDS ORDERED: LIDOCAINE (700MG/PATCH) PATCH. TD ONE (11:15)
--- NOTE | 2021-11-15 12:10 | RAD ---
PQRS Compliance Statement: One or more of the following individualized dose reduction techniques were utilized for this examinat ion: 1. Automated exposure control 2. Adjustment of the mA and/or kV according to patient size 3. Use of iterative reconstruction technique CT LUMBAR SPINE RECONSTRUCTION Clinical Indication: Reason: low back pain / Spl. Instructions: / History: Comparison: CT abdomen and pelvis without contrast, same day. TECHNIQUE: Using source images from same day study, small [id number] multiplanar reformats of the lumbar spine were constructed. Findings: For paraspinal soft tissue findings please refer to the CT abdomen and pelvis report. There is acute nondisplaced fracture of the right sacral ala. Correlate to whether there was a histor y of trauma. There is more subtle probably acute nondisplaced fracture of the left sacral ala. There is no acute fracture of the lumbar spine. There are reactive endplate changes inferiorly of L1. The v ertebral body height is maintained. The disc spaces are maintained. There are small Schmorl's nodes a t the endplates of T10/T11. 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 The sac roiliac joints are symmetric. No acute transverse process fracture. No high-grade narrowing of the ce ntral canal is identified in the lumbar spine. IMPRESSION: 1. There are acute nondisplaced bilateral sacral ala fractures. 2. There is no acute fracture of the lumbar spine. Electronically signed by: Wesley Hdez MD (11/15/2021 12:07 PM) DAVID
[2021-11-15] MEDS ORDERED: oxyCODONE IR 5 MG TABLET PO ONE (12:15)
--- NOTE | 2021-11-15 12:27 | PHYS DOC ---
Past Medical History Additional Past Medical Histor: Crohns Past Surgical History: Hip Replacement Additional Past Surgical Histo: Hysterectomy, gall bladder Smoking Status: Former Smoker Alcohol Use: Occasionally General Adult EDM: Chief Complaint: PAIN CONTROL HPI: HPI: 66 yo F past medical history of Crohn's, hypertension, asthma and iron deficiency anemia, presents to the ED brought by EMS with complaints of intermittent, nonradiating, left-sided low back pain stating "it keeps cramping up," for the past week. Pt states she has to crawl to the bathroom. Reports 2 weeks ago she broke her elbow when she slipped outside on gravel/loose rock- landed on her back. CT images at that time did not show any back injury. Reports some relief with hydrocodone. Has follow-up at [facility] on November 20 with orthopedic surgery. Denies any IV drug use, history of cancer, history of sciatica, history of malignancy, history of immunocompromise state, neurologic complaints including saddle anesthesia, weakness or paresthesias, urinary retention, bowel or bladder incontinence, night pain, fever/chills/night sweats, unexplained weight loss, anticoagulants or coagulopathy, prolonged ster oid use, or presence of contusions or abrasions. Review of Systems: Review of Systems: Constitutional: Denies fever or chills. [] Eyes: Denies change in visual acuity. [] HENT: Denies nasal congestion or sore throat. [] Respiratory: Denies cough or shortness of breath. [] Cardiovascular: Denies chest pain or edema. [] GI: Denies abdominal pain, nausea, vomiting, bloody stools or diarrhea. [] : Denies incontinence or saddle anesthesia Musculoskeletal: Denies joint pain or deformity Integument: Denies rash or diaphoresis Neurologic: Denies headache, focal weakness or sensory changes. [] Endocrine: Denies polyuria or polydipsia. [] Lymphatic: Denies swollen glands. [] Psychiatric: Denies depression or anxiety. [] Heart Score: C/O Chest Pain: No Risk Factors: Risk Factors: DM, Current or recent (<one month) smoker, HTN, HLP, family history of CAD, obesity. Risk Scores: Score 0 - 3: 2.5% MACE over next 6 weeks - Discharge Home Score 4 - 6: 20.3% MACE over next 6 weeks - Admit for Clinical Observation Score 7 - 10: 72.7% MACE over next 6 weeks - Early Invasive Strategies Current Medications: Current Medications Medications (Trade) Dose Ordered Sig/Alberto Start Time Stop Time Status Last Admin Dose Admin Acetaminophen (Tylenol) 1,000 mg 1X ONCE 11/15/21 09:15 11/15/21 09:16 DC 11/15/21 09:35 1,000 MG Diazepam (Valium) 10 mg 1X ONCE 11/15/21 08:15 11/15/21 08:17 DC 11/15/21 08:19 10 MG Lidocaine (Lidoderm) 1 patch 1X ONCE 11/15/21 11:15 11/15/21 11:16 DC 11/15/21 11:24 1 PATCH Allergies: Allergies: Allergies Coded Allergies Type Severity Reaction Last Updated Verified Iodinated Contrast Media Allergy Intermediate 07/30/20 Yes Iodine and Iodide Containing Produc Allergy Intermediate 07/30/20 Yes cephalexin Allergy Intermediate 07/30/20 Yes sulfamethoxazole Allergy Intermediate 07/30/20 Yes trimethoprim Allergy Intermediate 07/30/20 Yes ketorolac Adverse Reaction Intermediate Nausea 07/30/20 Yes Physical Exam: PE: Constitutional: Well developed, well nourished, paroxysms of pain, non-toxic appearance. HENT: Normocephalic, atraumatic, Eyes: EOMI, conjunctiva normal, no discharge. Neck: Normal range of motion, supple, Cardiovascular: S1/2 present, regular rhythm Lungs & Thorax: Speaking in full sentences, bilateral equal chest rise, no tachypnea or increased work of breathing Abdomen: soft, no tenderness, Skin: Warm, dry, no erythema, no rash. [] Back: pain at left L5/S1 junction, no midline step offs, no CVA tenderness, +left straight leg test, cap refill < 1 second Extremities: No tenderness, no cyanosis, no lower extremity edema Neurologic: Alert and oriented X 3, normal motor function, normal sensory function, no focal deficits noted. [] Psychologic: Affect normal, judgement normal, mood normal. [] Current Patient Data: Labs: Laboratory Tests Test 11/15/21 08:10 11/15/21 09:15 11/15/21 10:20 White Blood Count 5.6 x10^3/uL (4.0-11.0) Red Blood Count 4.19 x10^6/uL (3.50-5.40) Hemoglobin 11.2 g/dL (12.0-15.5) L Hematocrit 34.7 % (36.0-47.0) L Mean Corpuscular Volume 83 fL (79-100) Mean Corpuscular Hemoglobin 27 pg (25-35) Mean Corpuscular Hemoglobin Concent 32 g/dL (31-37) Red Cell Distribution Width 21.2 % (11.5-14.5) H Platelet Count 150 x10^3/uL (140-400) Neutrophils (%) (Auto) 72 % (31-73) Lymphocytes (%) (Auto) 20 % (24-48) L Monocytes (%) (Auto) 8 % (0-9) Eosinophils (%) (Auto) 0 % (0-3) Basophils (%) (Auto) 0 % (0-3) Neutrophils # (Auto) 4.0 x10^3/uL (1.8-7.7) Lymphocytes # (Auto) 1.1 x10^3/uL (1.0-4.8) Monocytes # (Auto) 0.5 x10^3/uL (0.0-1.1) Eosinophils # (Auto) 0.0 x10^3/uL (0.0-0.7) Basophils # (Auto) 0.0 x10^3/uL (0.0-0.2) Platelet Estimate Adequate (ADEQUATE) Polychromasia Slight Anisocytosis Slight Sodium Level 145 mmol/L (136-145) Potassium Level 3.1 mmol/L (3.5-5.1) L Chloride Level 109 mmol/L (98-107) H Carbon Dioxide Level 26 mmol/L (21-32) Anion Gap 10 (6-14) Blood Urea Nitrogen 12 mg/dL (7-20) Creatinine 0.6 mg/dL (0.6-1.0) Estimated GFR (Cockcroft-Gault) 100.0 BUN/Creatinine Ratio 20 (6-20) Glucose Level 98 mg/dL (70-99) Calcium Level 8.5 mg/dL (8.5-10.1) Total Bilirubin 0.6 mg/dL (0.2-1.0) Aspartate Amino Transferase (AST) 37 U/L (15-37) Alanine Aminotransferase (ALT) 23 U/L (14-59) Alkaline Phosphatase 99 U/L (46-116) Total Protein 7.0 g/dL (6.4-8.2) Albumin 3.2 g/dL (3.4-5.0) L Albumin/Globulin Ratio 0.8 (1.0-1.7) L Urine Collection Type Unknown Urine Color Yellow Urine Clarity Clear Urine pH 7.0 (<5.0-8.0) Urine Specific [place] 1.015 (1.000-1.030) Urine Protein Negative mg/dL (NEG-TRACE) Urine Glucose (UA) Negative mg/dL (NEG) Urine Ketones (Stick) Negative mg/dL (NEG) Urine Blood Negative (NEG) Urine Nitrite Negative (NEG) Urine Bilirubin Negative (NEG) Urine Urobilinogen Dipstick 1.0 mg/dL (0.2 mg/dL) Urine Leukocyte Esterase Negative (NEG) Urine RBC 0 /HPF (0-2) Urine WBC Occ /HPF (0-4) Urine Squamous Epithelial Cells Few /LPF Urine Amorphous Sediment Present /HPF Urine Bacteria Few /HPF (0-FEW) Laboratory Tests 11/15/21 08:10 Laboratory Tests 11/15/21 09:15 Vital Signs: Vital Signs Date Time Temp Pulse Resp B/P (MAP) Pulse Ox O2 Delivery O2 Flow Rate FiO2 11/15/21 11:23 94 18 154/94 (114) 94 Room Air 11/15/21 08:00 98.1 98.1 EKG: EKG: [] Radiology/Procedures: Radiology/Procedures: IMAGING REPORT Signed PATIENT: TUNG BERMAN ACCOUNT: [id number] : 1955 LOCATION: ER AGE: 66 SEX: F EXAM STATUS: REG ER ORD. PHYSICIAN: JANNA ALEMAN DO REASON: Low back pain PROCEDURE: CT ABDOMEN PELVIS WO CONTRAST CT ABDOMEN+PELVIS WO dated 11/15/2021 8:49 AM Indication:Reason: Low back pain / Spl. Instructions: / History: Comparison: No comparison is available. Technique: Helical noncontrast images were performed. One or more of the following individualized dose reduction techniques were utilized for this examination: 1. Automated exposure control 2. Adjustment of the mA and/or kV according to patient size 3. Use of iterative reconstruction technique Findings: There is minimal atelectasis at both lung bases. Liver and spleen show small calcifications consistent with prior granulomatous infection. No significant focal abnormality is seen. Liver contour is mildly irregular. The biliary tree appears mildly dilated without cause for obstruction. This could relate to prior cholecystectomy. The spleen is enlarged, measuring about 18 cm craniocaudally. There may be a trace of ascites adjacent to the liver anteriorly. The kidneys show no apparent mass, calcification or obstruction. The adrenal glands are not enlarged. No pancreatic abnormality is seen. There is no apparent retroperitoneal or mesenteric adenopathy. No abdominal soft tissue mass or inflammatory process is seen. Images through the pelvis show no abnormality of the distal ureters or bladder. No pelvic or inguinal adenopathy is seen. There is no apparent pelvic mass or inflammatory process. There is prominent metal artifact arising from the right hip, slightly limiting evaluation. IMPRESSION: No acute abnormality is identified. There are findings that may indicate cirrhosis and portal hypertension. Electronically signed by: Luis Braun Jr., MD (11/15/2021 9:59 AM) [facility] DICTATED and SIGNED BY: LUIS BRAUN Jr, MD DATE: 11/15/21 [id number] IMAGING REPORT Signed PATIENT: TUNG BERMAN ACCOUNT: [id number] : 1955 LOCATION: ER AGE: 66 SEX: F EXAM STATUS: REG ER ORD. PHYSICIAN: JANNA ALEMAN DO REASON: low back pain PROCEDURE: CT LUMBAR SPINE RECONSTRUCTION PQRS Compliance Statement: One or more of the following individualized dose reduction techniques were util ized for this examination: 1. Automated exposure control 2. Adjustment of the mA and/or kV according to patient size 3. Use of iterative reconstruction technique CT LUMBAR SPINE RECONSTRUCTION Clinical Indication: Reason: low back pain / Spl. Instructions: / History: Comparison: CT abdomen and pelvis without contrast, same day. TECHNIQUE: Using source images from same day study, small [id number] multiplanar reformats of the lumbar spine were constructed. Findings: For paraspinal soft tissue findings please refer to the CT abdomen and pelvis report. There is acute nondisplaced fracture of the right sacral ala. Correlate to whether there was a history of trauma. There is more subtle probably acute nondisplaced fracture of the left sacral ala. There is no acute fracture of the lumbar spine. There are reactive endplate changes inferiorly of L1. The vertebral body height is maintained. The disc spaces are maintained. There are small Schmorl's nodes at the endplates of T10/T11. 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 The sacroiliac joints are symmetric. No acute transverse process fracture. No high-grade narrowing of the central canal is identified in the lumbar spine. IMPRESSION: 1. There are acute nondisplaced bilateral sacral ala fractures. 2. There is no acute fracture of the lumbar spine. Electronically signed by: Wesley Hdez MD (11/15/2021 12:07 PM) [facility] DICTATED and SIGNED BY: WESLEY HDEZ MD DATE: 11/15/21 [id number] 0 Course & Med Decision Making: Course & Med Decision Making Pertinent Labs and Imaging studies reviewed. (See chart for details) CT concerning for bilateral sacral ala fractures-report printed and given to pt. Pt does report falling 2 weeks ago such that she broke her left arm-landed on her back. Patient very concerned regarding her pain management. States hydrocodone 5 mg does not work. Follows with Dr. Ocasio, orthopedic surgery on 11/20. Reports her has seen pain management with Dr. Freddie Otoole-she understands that narcotic medications should be routinely prescribed by primary care physicians or pain management. Patient understands risk of addiction, constipation, sedation and apnea. I explained she would get a prescription for hydrocodone 7.5mg and to take with nsaids. Ktracs shows pt has had tylenol w/codeine #4 and norcos filled this past month. Pain alleviated while in the ed/at time of discharge-pt able to ambulate to the restroom. Will discharge home with strict ED return precautions were given for incontinence, saddle anesthesia or neurologic deficits. Encouraged urgent outpatient follow-up with PMD and orthopedic surgery. Life-threatening processes were considered but are low suspicion at this time, given history, physical exam and ED workup. Pt was educated on all prescription medications and adverse effects. All patient's questions were answered and pt was stable at time of discharge. Life/limb-threatening differential includes but is not limited to, aortic dissection/aneurysm, cauda equina syndrome, transverse myelitis, spinal cord/epidural compression syndromes, discitis, spinal stenosis, epidural abscess or hematoma, osteomyelitis, disc herniation, surgical abdomen, stable or unstable fracture, renal/ureteral colic, sepsis, meningitis, musculoskeletal injury, traumatic injury, intraabdominal/retroperitoneal or pelvic bleeding. I have spoken with the patient and/or caregivers. I explained the patient's condition, diagnoses and treatment plan based on the information available to me at this time. I have answered the patient and/or caregiver's questions and addressed any concerns. The patient and/or caregivers have a good understanding of patient's diagnosis, condition and treatment plan as can be expected at this point. Vital signs have been stable. Patient's condition is stable and appropriate for discharge from the emergency department. Patient will pursue further outpatient evaluation with primary care physician or other designated or consulting physician as outlined in the discharge instructions. The patient and/or caregivers are agreeable to this plan of care and follow-up instructions have been explained in detail. The patient and/or caregivers have received these instructions in written form and have expressed an understanding of the discharge instructions. The patient and/or caregivers are aware that any significant change of condition or worsening of symptoms should prompt immediate return to this or the closest emergency department or call to 911. Shauna Disclaimer: Shauna Disclaimer: This electronic medical record was generated, in whole or in part, using a voice recognition dictation system. Departure Departure Impression: Primary Impression: Back pain Additional Impression: Closed sacral fracture Disposition: 01 HOME / SELF CARE / HOMELESS Condition: STABLE Referrals: CHAVO CEJA PA-C (PCP) Follow-up with your primary care physician in 24 to 48 hours OR FOLLOW UP WITH FAMILY MEDICINE: [address] [facility], [address] [place] [address] Patient Instructions: Back Pain, Adult, Hip Fracture-SportsMed Additional Instructions: FOLLOW UP WITH ORTHOPEDICS: FOR DEFINITIVE MANAGEMENT of back pain Orthopaedic Surgery [address], [address] [place] [address] EMERGENCY DEPARTMENT GENERAL DISCHARGE INSTRUCTIONS Thank you for coming to [facility] Emergency Department (ED) today and trusting us with you care. We trust that you had a positive experience in our Emergency Department. If you wish to speak to the department management, you may call the Director at [phone]. YOUR FOLLOW UP INSTRUCTIONS ARE FOLLOWS: 1. Do you have a private Doctor? If you do not have a private doctor, please ask for a resource list of physicians or clinics that may be able to assist you with follow up care. 2. The Emergency Physicain has interpreted your x-rays. The X-Ray specialist will also review them. If there is a change in the findings, you will be notified in 48 hours when at all possible. 3. A lab test or culture has been done, your results will be reviewed and you will be notified if you need a change in treatment. ADDITIONAL INSTRUCTIONS AND INFORMATION: 1. Your care today has been supervised by a physician who is specially trained in emergency care. Many problems require more than one evaluation for a complete diagnosis and treatment. We recommend that you schedule your follow up appointment as recommended to ensure complete treatment of you illness or injury. If you are unable to obtain follow up care and continue to have a problem, or if your condition worsens, we recommend that you return to the ED. 2. We are not able to safely determine your condition over the phone nor are we able to give sound medical advice over the phone. For these safety reasons, if you call for medical advice we will ask you to come to the ED for further evaluation. 3. If you have any questions regarding these discharge instructions please call the ED at [phone]. SAFETY INFORMATION: In the interest of safety, wellness, and injury prevention; we encourage you to wear your sealbelt, if you smoke; quite smoking, and we encourage family to use a protective helmet for bicycling and other sporting events that present an increased risk for head injury. IF YOUR SYMPTOMS WORSEN OR NEW SYMPTOMS DEVELOP, OR YOU HAVE CONCERNS ABOUT YOUR CONDITION; OR IF YOUR CONDITION WORSENS WHILE YOU ARE WAITING FOR YOUR FOLLOW UP APPOINTMENT; EITHER CONTACT YOUR PRIMARY CARE DOCTOR, THE PHYSICIAN WHOSE NAME AND NUMBER YOU WERE GIVEN, OR RETURN TO THE ED IMMEDIATELY. Scripts Cyclobenzaprine Hcl (CYCLOBENZAPRINE HCL) 5 Mg Tablet 1 TAB PO TID, #30 TAB Prov: JANNA ALEMAN DO 11/15/21 Hydrocodone Bit/Acetaminophen (HYDROCODONE-APAP 7.5-325 ) 1 Tab Tablet 1 TAB PO PRN Q6HRS PRN for PAIN for 3 Days, #12 TAB 0 Refills Prov: JANNA ALEMAN DO 11/15/21 Naproxen (NAPROSYN) 500 Mg Tablet 1 TAB PO BID for pain for 7 Days, #14 TAB Prov: JANNA ALEMAN DO 11/15/21 JANNA ALEMAN DO Nov 15, 2021 12:27
[2021-11-15] MEDS ORDERED: ONDANSETRON PF 4 MG/2 ML VIAL. IVP ONE (12:30)
[2021-11-15 12:31] VITALS: BP 140/73
[2021-11-15] MEDS ORDERED: HYDR-2765 PO (12:42)
[2021-11-15] MEDS ORDERED: NAPR-683 PO (12:42)
[2021-11-15] MEDS ORDERED: CYCLOBENZAPRINE 10 MG TABLET. PO ONE (13:15)
[2021-11-15] MEDS ORDERED: CYCL5TAB PO (13:19)
== END 2021-11-15 13:20 | disposition home or self-care (01) ==
LOC: ER 07:57
DX: S32.10XA Unspecified fracture of sacrum, initial encounter for closed fracture (principal); K50.90 Crohn's disease, unspecified, without complications; Z87.891 Personal history of nicotine dependence; Z90.710 Acquired absence of both cervix and uterus; Z91.041 Radiographic dye allergy status; Z88.1 Allergy status to other antibiotic agents; Z88.6 Allergy status to analgesic agent; Z88.2 Allergy status to sulfonamides; X58.XXXA Exposure to other specified factors, initial encounter; Y93.89 Activity, other specified; Y92.89 Other specified places as the place of occurrence of the external cause; Y99.8 Other external cause status
CPT/HCPCS: 36415; 74176; 80053; 81001; 85025; 96374; 99285; J2405